=== PATIENT | male | born 1970 | race Caucasian/White ===

== ENCOUNTER 2024-07-20 11:13 | Outpatient (CLI) | payer MEDICAID | END 2024-07-20 23:59 | disposition home or self-care (01) | LOC: 64 CT 11:13 | PROVIDERS: ATTEND Student in an Organized Health Care Education/Training Program | DX: Z12.2 Encounter for screening for malignant neoplasm of respiratory organs (principal); F17.210 Nicotine dependence, cigarettes, uncomplicated | CPT/HCPCS: 71271 ==

== ENCOUNTER 2024-09-04 08:57 | Outpatient (CLI) | payer MEDICAID | END 2024-09-04 23:59 | disposition home or self-care (01) | LOC: RAD 08:57 | PROVIDERS: ATTEND Neuromusculoskeletal Medicine & OMM | DX: R41.3 Other amnesia (principal) | CPT/HCPCS: 95816 ==